=== PATIENT | male | born 1970 | race Caucasian/White ===

== ENCOUNTER 2019-11-09 11:52 | Emergency (ER) | payer OTHER ==
--- OUTSIDE RECORDS SUMMARY | 2019-11-09 12:00 | XMS REPORT | Continuity of Care Document ---
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 Problems Description No Information Available Social History Type Date Description Comments Sex Unknown Cigarette Use Negative For Current Cigarette Smoker Tobacco Use Start: Unknown Never Smoked Cigarettes Tobacco Use Start: Unknown End: Unknown current.no Tobacco Use Start: Unknown End: Unknown current.no Smokeless Tobacco current.no ETOH Use Currently rarely consumes alcohol Tobacco Use Start: Unknown Patient has never smoked Smoking Status Reviewed: 09/25/19 Patient has never smoked Allergies, Adverse Reactions, Alerts Description No Known Drug Allergies Medications Active Medications SIG Qnty Indications Ordering Provider Date Mometasone Furoate 2 sprays to each 34gm Cuong Mckenzie 09/25/2019 nostril twice MD Kendal 50mcg/Act Suspension daily Singulair 1 by mouth every 30tabs Cuong Mckenzie 09/25/2019 10mg Tablets day MD Kendal History Medications No Active Medications Unknown 09/25/2019 - 09/25/2019 Prednisone 4 tabs po every 40tabs Cuong Edmonds, 09/25/2019 - 10mg Tablets day x4 d, then 3 MD 11/04/2019 tabs po every day x4 d, then 2 tabs po every day x4d, then 1 tab po qd x4d, then off Immunizations Description No Information Available Vital Signs Date Vital Result Comment 11/04/2019 3:34pm Weight 214.00 lb Weight 97.070 kg Height 74 inches 6'2" Height in cm's 188.0 cm BMI (Body Mass Index) 27.5 kg/m2 09/25/2019 10:53am Weight 214.00 lb Weight 97.070 kg Height 74 inches 6'2" Height in cm's 188.0 cm BMI (Body Mass Index) 27.5 kg/m2 Results Description No Information Available Procedures Date Code Description Status 09/25/2019 44262 Nasal Endoscopy, Diagnostic Completed Medical Devices Description No Information Available Encounters Type Date Location Provider Dx Diagnosis Office Visit 11/04/2019 Francisco [email or web address] Other polyp of 3:30p 09-10-2019 MD [facility] sinus Office Visit 09/25/2019 Francisco Mckenzie J33.8 Other polyp of 10:45a 09-10-2019 MD Kendal sinus Assessments Date Code Description Provider 11/04/2019 J33.8 Other polyp of sinus Cuong Edmonds MD 09/25/2019 J33.8 Other polyp of sinus Cuong Edmonds MD Plan of Treatment Future Appointment(s):12/02/2019 2:45 pm - Cuong Edmonds MD at [facility] - Cuong Edmonds MDJ33.8 Other polyp of sinus Functional Status Description No Information Available Mental Status Description No Information Available Referrals Description No Information Available
--- OUTSIDE RECORDS SUMMARY | 2019-11-09 12:00 | XMS REPORT | Continuity of Care Document ---
:1970 External Reference #:[id number] Author Name Cuong Edmonds MD Address [address] [place] [address] Care Team Providers Name Role Phone Norbert Rondon MD - Family Medicine Care Team Information Residential Treatment Counselor Problems Description No Information Available Social History [...] Medications SIG Qnty Indications Ordering Provider Date Prednisone 4 tabs po every 40tabs Cuong Mckenzie 09/25/2019 10mg Tablets day x4 d, then 3 MD Kendal tabs po every day x4 d, then 2 tabs po every day x4d, then 1 tab po qd x4d, then off Mometasone Furoate 2 sprays to each 34gm Cuong Mckenzie 09/25/2019 nostril twice MD Kendal 50mcg/Act Suspension daily Singulair 1 by mouth every 30tabs Cuong Mckenzie 09/25/2019 10mg Tablets day MD Kendal History Medications No Active Medications Unknown 09/25/2019 - 09/25/2019 Immunizations Description No Information Available Vital Signs Date Vital Result Comment 09/25/2019 10:53am Weight 214.00 lb Weight 97.070 kg Height 74 inches 6'2" Height in cm's 188.0 cm BMI (Body Mass Index) 27.5 kg/m2 08/04/2008 11:03am BP Systolic 122 mmHg BP Diastolic 83 mmHg Heart Rate 75 /min Respiratory Rate 16 /min Results Description No Information Available Procedures Date Code Description Status 09/25/2019 23716 Nasal Endoscopy, Diagnostic Completed Medical Devices Description No Information Available Encounters Type Date Location Provider Dx Diagnosis Office Visit 09/25/2019 Francisco Mckenzie J33.8 Other polyp of 10:45a 09-10-2019 MD Kendal sinus Assessments Date Code Description Provider 09/25/2019 J33.8 Other polyp of sinus Cuong Edmonds MD Plan of Treatment Future Appointment(s):11/04/2019 3:30 pm - Cuong Edmonds MD at [facility] - Cuong Edmonds MDJ33.8 Other polyp of sinus Functional Status Description No Information Available Mental Status Description No Information Available Referrals Description No Information Available
[2019-11-09 12:21] VITALS: BP 118/74
--- NOTE | 2019-11-09 12:42 | UC ---
Throat Pain/Nasal Conrad HPI - HPI Summary HPI Summary: patient dx with sinus polyp and rx prednisone then advised to use nasal spray--- he did not use nasal spray as it irritated his nose---patient now reports increasing pain in right side of face, teeth and eye--he has a ct scheduled for 11/23 and he is contemplating sinus surgery as he has been dealing with sinus problems for over 10 years - History of Current Complaint Chief Complaint: UCGeneralIllness Stated Complaint: SINUS ISSUES Time Seen by Provider: 11/09/19 12:40 Hx Obtained From: Patient Onset/Duration: Gradual Onset, Lasting Weeks Severity: Moderate Pain Intensity: 4 Pain Scale Used: 0-10 Numeric Cough: None Associated Signs & Symptoms: Positive: Sinus Discomfort - Allergies/Home Medications Allergies/Adverse Reactions: Allergies Allergy/AdvReac Type Severity Reaction Status Date / Time kamaljit rice Allergy Congestion Uncoded 11/09/19 12:22 Home Medications: Home Medications Ibuprofen TAB* [Motrin TAB* 800 MG] 800 mg PO ONCE PRN 08/28/15 [History Confirmed 11/09/19] Amoxicillin/Clavulanate TAB* [Augmentin TAB 875*] 875 mg PO BID #20 tab [Rx] Guaifenesin/Pseudoephedrne HCl [Mucinex D ER 1,200-120 mg Tab] 1 tab PO Q12H 09/29 [History Confirmed 11/09/19] PMH/Surg Hx/FS Hx/Imm Hx Previously Healthy: Yes - Surgical History Surgical History: None - Family History Known Family History: Positive: None - Social History Occupation: Employed Full-time Lives: With Family Alcohol Use: Occasionally Substance Use Type: None Smoking Status (MU): Never Smoked Tobacco - Immunization History Most Recent Tetanus Shot: 2009 Review of Systems All Other Systems Reviewed And Are Negative: Yes Constitutional: Positive: Negative Skin: Positive: Negative Eyes: Positive: Negative ENT: Positive: Sinus Congestion, Sinus Pain/Tenderness Respiratory: Positive: Negative Cardiovascular: Positive: Negative Gastrointestinal: Positive: Negative Genitourinary: Positive: Negative Motor: Positive: Negative Neurovascular: Positive: Negative Musculoskeletal: Positive: Negative Neurological/Mental Status: Positive: Negative Psychological: Positive: Negative Is Patient Immunocompromised?: No Physical Exam Triage Information Reviewed: Yes Appearance: Well-Appearing, No Pain Distress, Well-Nourished Vital Signs: Initial Vital Signs Temp 99.1 F 11/09/19 12:15 Pulse 76 11/09/19 12:15 Resp 16 11/09/19 12:15 BP 118/74 11/09/19 12:15 Pulse Ox 100 11/09/19 12:15 Vital Signs Reviewed: Yes Eye Exam: Normal Eyes: Positive: Conjunctiva Clear ENT Exam: Normal ENT: Positive: Normal ENT inspection, Hearing grossly normal, Pharynx normal, Nasal congestion - right nare swollen closed, red and moist, TMs normal, Sinus tenderness, Uvula midline. Negative: Tonsillar swelling, Tonsillar exudate, Trismus, Muffled voice, Hoarse voice, Dental tenderness Dental Exam: Normal Neck exam: Normal Neck: Positive: Supple, Nontender, No Lymphadenopathy Respiratory Exam: Normal Respiratory: Positive: Chest non-tender, Lungs clear, Normal breath sounds, No respiratory distress, No accessory muscle use Cardiovascular Exam: Normal Cardiovascular: Positive: RRR, Pulses Normal, Brisk Capillary Refill Musculoskeletal Exam: Normal Musculoskeletal: Positive: Strength Intact, ROM Intact, No Edema Neurological Exam: Normal Neurological: Positive: Alert, Muscle Tone Normal Psychological Exam: Normal Skin Exam: Normal Throat Pain/Nasal Course/Dx - Course Course Of Treatment: saline nasal spray may offer some confort continue otc medications for symptom relief follow with ENT - Differential Dx/Diagnosis Provider Diagnosis: Acute bacterial rhinosinusitis Discharge ED - Sign-Out/Discharge Documenting (check all that apply): Patient Departure All imaging exams completed and their final reports reviewed: No Studies - Discharge Plan Condition: Stable Disposition: HOME Prescriptions: Amoxicillin/Clavulanate TAB* [Augmentin TAB 875*] 875 mg PO BID #20 tab Patient Education Materials: Sinusitis (ED) Referrals: No Primary Care Phys,NOPCP [Primary Care Provider] - Additional Instructions: Follow with your ENT doctor if needed - Billing Disposition and Condition Condition: STABLE Disposition: Home
== END 2019-11-09 12:59 | disposition home or self-care (01) ==
LOC: UCEAST 11:52
DX: J01.90 Acute sinusitis, unspecified (principal); B96.89 Other specified bacterial agents as the cause of diseases classified elsewhere; Z91.09 Other allergy status, other than to drugs and biological substances
CPT/HCPCS: 99202; G0463

== ENCOUNTER 2023-12-09 12:11 | Inpatient (IN) ==
[2023-12-09 12:53] LABS: ABS Basophils 0.1 10^3/uL (0.0-0.1); ABS Eosinophils 0.2 10^3/uL (0.0-0.5); ABS Lymphocytes 2.2 10^3/uL (1.0-4.8); ABS Monocytes 0.5 10^3/uL (0.0-1.1); ABS Neutrophils 4.5 10^3/uL (1.5-7.6); ABS Nucleated RBC 0.01 10^3/ul; Hematocrit 47.9 % (38-53); Hemoglobin 16.2 g/dL (13.2-16.3); Lymphocyte % 29.8 %; Mean Corpuscular Hemoglobin 31.5 pg (27-33); Mean Corpuscular Hgb Conc 33.9 g/dL (31-36); Mean Corpuscular Volume 92.8 fL (80-97); Mean Platelet Volume 7.1 fL (7.5-11.2); Nucleated Red Blood Cells % 0.1 %/100WBC (0.0-0.8); Platelet Count 261 10^3/uL (150-450); Red Blood Count 5.16 10^6/uL (4.06-5.63); Red Cell Distribution Width 13.4 % (12-17); White Blood Count 7.5 10^3/uL (3.6-10.2)
[2023-12-09 13:02] LABS: INR 1.04 (0.83-1.13)
[2023-12-09 13:34] LABS: Albumin 4.7 g/dL (3.2-5.2); Albumin/Globulin Ratio 1.7 (1-3); Calcium 9.3 mg/dL (8.6-10.3); Creatinine, Serum 1.19 mg/dL (0.67-1.17); Globulin 2.7 g/dL (2-4); Potassium 4.5 mmol/L (3.5-5.0); Total Bilirubin 0.3 mg/dL (0.2-1.0); Total Protein 7.4 g/dL (6.4-8.9); eGFR CKD-EPI 73.5 (>60)
[2023-12-09 14:24] LABS: High Sensitivity Troponin 1 Hr 14 pg/mL (<20)
[2023-12-09] MEDS: Nitroglycerin 0.3 mg TAB SL ONE (15:58)
[2023-12-09 16:28] LABS: High Sensitivity Troponin 3 Hr 246 pg/mL (<20)
[2023-12-09] MEDS: Heparin - STEMI 5,000 UNITS/ML 1 ml VIAL IV ONE (17:08)
[2023-12-09] MEDS ORDERED: Midazolam 5 mg/5 ml VIAL 1 mg/ml 5 ml VIAL (5 mg) ONE (17:26)
[2023-12-09] MEDS ORDERED: fentaNYL 100 mcg/2 ml 50 MCG/ML VIAL ONE (17:26)
[2023-12-09] MEDS ORDERED: Heparin 1,000 UNIT/ML 10 ml (10,000 UNITS) CATHLAB/DIALYSIS ONE (17:26)
[2023-12-09] MEDS ORDERED: VERAPAMIL 2.5 MG/ML 2 ML VIAL ** 5 mg/2 ml ONE (17:26)
[2023-12-09] MEDS ORDERED: Iohexol 350 (CONTRAST) 200 ML MDV IV ONE (17:27)
[2023-12-09] MEDS ORDERED: Lidocaine 1% MPF 5 ML VIAL ONE (17:27)
[2023-12-09] MEDS ORDERED: Heparin 2 UNITS/ML 1000 mls 2,000 ML IV ONE (17:27)
[2023-12-09] MEDS ORDERED: nitroGLYCERIN DRIP 25,000 MCG/250 ML BTL ONE (17:27)
[2023-12-09] MEDS ORDERED: Bivalirudin 250 MG VIAL ONE ×2 (18:01→18:02)
[2023-12-09] MEDS ORDERED: Atropine 0.1 MG/ML 10 ml SYR (1 mg) ONE (18:02)
[2023-12-09] MEDS ORDERED: Eptifibatide IV (Load dose) 2 MG/ML 10 ml VIAL ONE ×2 (18:17→18:29)
[2023-12-09] MEDS ORDERED: Iohexol 350 (CONTRAST) 100 ML PAK IV ONE (19:08)
[2023-12-09] MEDS: Heparin DRIP 25,000 UNITS BAG 25,000 UNITS/250 ML BAG IV ONE (21:08)
[2023-12-09] MEDS: NS 0.9% 1000 ml BAG 1,000 ML IV SCH (21:19)
[2023-12-09 21:43] LABS: ABS Basophils 0.1 10^3/uL (0.0-0.1); ABS Lymphocytes 1.7 10^3/uL (1.0-4.8); ABS Monocytes 0.3 10^3/uL (0.0-1.1); ABS Neutrophils 9.7 10^3/uL (1.5-7.6); ABS Nucleated RBC 0.01 10^3/ul; Eosinophil % 0.1 %; Hematocrit 43.1 % (38-53); Hemoglobin 14.9 g/dL (13.2-16.3); Lymphocyte % 14.2 %; Mean Corpuscular Hemoglobin 31.8 pg (27-33); Mean Corpuscular Hgb Conc 34.5 g/dL (31-36); Mean Corpuscular Volume 92.2 fL (80-97); Mean Platelet Volume 7.2 fL (7.5-11.2); Nucleated Red Blood Cells % 0.1 %/100WBC (0.0-0.8); Platelet Count 249 10^3/uL (150-450); Red Blood Count 4.67 10^6/uL (4.06-5.63); Red Cell Distribution Width 13.1 % (12-17); White Blood Count 11.8 10^3/uL (3.6-10.2)
[2023-12-09] MEDS: Heparin DRIP 25,000 UNITS BAG 25,000 UNITS/250 ML BAG IV SCH (21:43)
[2023-12-09 22:14] LABS: Creatinine, Serum 0.99 mg/dL (0.67-1.17); eGFR CKD-EPI 91.7 (>60)
[2023-12-09 23:15] LABS: Calcium 8.8 mg/dL (8.6-10.3); Potassium 4.1 mmol/L (3.5-5.0)
[2023-12-10 05:10] LABS: ABS Lymphocytes 1.5 10^3/uL (1.0-4.8); ABS Monocytes 0.7 10^3/uL (0.0-1.1); ABS Neutrophils 7.6 10^3/uL (1.5-7.6); ABS Nucleated RBC 0.01 10^3/ul; Eosinophil % 0.3 %; Hematocrit 39.6 % (38-53); Hemoglobin 13.8 g/dL (13.2-16.3); Lymphocyte % 15.3 %; Mean Corpuscular Hemoglobin 32.1 pg (27-33); Mean Corpuscular Hgb Conc 34.9 g/dL (31-36); Nucleated Red Blood Cells % 0.1 %/100WBC (0.0-0.8); Platelet Count 214 10^3/uL (150-450); Red Cell Distribution Width 13.4 % (12-17); White Blood Count 9.8 10^3/uL (3.6-10.2)
[2023-12-10] MEDS: Heparin 5000 UNITS/ML 1 mL VIAL IV SCH (05:41)
[2023-12-10 05:43] LABS: Albumin 3.9 g/dL (3.2-5.2); Albumin/Globulin Ratio 1.8 (1-3); Calcium 8.3 mg/dL (8.6-10.3); Creatinine, Serum 1.02 mg/dL (0.67-1.17); Globulin 2.2 g/dL (2-4); HDL Cholesterol 37.5 mg/dL; Potassium 3.8 mmol/L (3.5-5.0); Total Bilirubin 0.5 mg/dL (0.2-1.0); Total Protein 6.1 g/dL (6.4-8.9); eGFR CKD-EPI 88.4 (>60)
[2023-12-10] MEDS ORDERED: Sulfur Hexaflouride MICROSPHR 25 MG VIAL ONE (10:05)
[2023-12-11] MEDS: Lactated Ringers 1000 ml BAG 500 ML IV ONE (00:24)
[2023-12-11 04:15] LABS: ABS Basophils 0.1 10^3/uL (0.0-0.1); ABS Eosinophils 0.1 10^3/uL (0.0-0.5); ABS Lymphocytes 2.2 10^3/uL (1.0-4.8); ABS Monocytes 0.6 10^3/uL (0.0-1.1); ABS Neutrophils 4.3 10^3/uL (1.5-7.6); ABS Nucleated RBC 0.01 10^3/ul; Eosinophil % 0.9 %; Hematocrit 38.8 % (38-53); Hemoglobin 13.4 g/dL (13.2-16.3); Lymphocyte % 30.4 %; Mean Corpuscular Hgb Conc 34.5 g/dL (31-36); Mean Corpuscular Volume 92.7 fL (80-97); Mean Platelet Volume 7.3 fL (7.5-11.2); Nucleated Red Blood Cells % 0.2 %/100WBC (0.0-0.8); Platelet Count 184 10^3/uL (150-450); Red Blood Count 4.18 10^6/uL (4.06-5.63); Red Cell Distribution Width 13.4 % (12-17); White Blood Count 7.3 10^3/uL (3.6-10.2)
[2023-12-11 04:53] LABS: Albumin 3.8 g/dL (3.2-5.2); Albumin/Globulin Ratio 1.7 (1-3); Calcium 8.4 mg/dL (8.6-10.3); Creatinine, Serum 0.98 mg/dL (0.67-1.17); Globulin 2.2 g/dL (2-4); Potassium 4.1 mmol/L (3.5-5.0); Total Bilirubin 0.5 mg/dL (0.2-1.0); eGFR CKD-EPI 92.8 (>60)
[2023-12-11 12:32] VITALS: BP 94/65
== END 2023-12-11 12:26 | disposition home or self-care (01) | DRG 174 ==
LOC: ED 12:11 → CHICATH 17:41 → ICU 20:09